=== PATIENT | male | born 1995 | race African-American/Black ===

== ENCOUNTER 2018-08-01 17:29 | Emergency (ER) | payer OTHER ==
[2018-08-01] MEDS: KETOROLAC TROMETHAMINE 10 MG TAB PO (18:59)
== END 2018-08-01 19:19 | disposition home or self-care (01) ==
LOC: M ED 17:29
DX: S06.0X0A Concussion without loss of consciousness, initial encounter (principal); W51.XXXA Accidental striking against or bumped into by another person, initial encounter; Y92.89 Other specified places as the place of occurrence of the external cause; Y93.67 Activity, basketball
CPT/HCPCS: 99282

== ENCOUNTER → 2018-10-04 | Outpatient (REF) | payer OTHER | LOC: M LAB REF 09:38 | PROVIDERS: ATTEND Physician Assistant Medical | DX: Z11.3 Encounter for screening for infections with a predominantly sexual mode of transmission (principal) ==